=== PATIENT | male | born 1980 | race Caucasian/White ===

== ENCOUNTER 2016-12-15 12:53 | Emergency (ER) | payer SELFPAY ==
[2016-12-15 13:02] VITALS: BP 102/63; PULSE 55; RESP 16; TEMP 98.2; O2SAT 95
--- NOTE | 2016-12-15 13:51 | UCPHY ---
H & P Time Seen by Provider: 12/15/16 12:58 Patient Type: New HPI/ROS: CHIEF COMPLAINT: Cough, sore throat HPI: The patient is a 36-year-old male with no significant past medical history. He complains of sore throat, malaise and cough that has been present for approximately 1 week. The patient was seen a few days ago in urgent care with a negative rapid strep. He describes 1 episode of blood-tinged sputum. Initially his symptoms were primarily sore throat but have now progressed to cough. He complains of overall malaise and fatigue. REVIEW OF SYSTEMS: Aside from elements discussed in the HPI, a comprehensive 10-point review of systems was reviewed and is negative. PMH: None significant. SOCIAL HISTORY: Works as a signs teacher. Denies alcohol or drug abuse. FAMILY HISTORY: Reviewed, noncontributory PHYSICAL EXAM: General:Patient is alert, in no acute distress. ENT:Eyes are normal to inspection. ENT inspection normal. No exudate or erythema. Neck: Normal inspection. Full range of motion. Respiratory:No respiratory distress. Breath sounds normal bilaterally. Cardiovascular: Regular rate and rhythm. Strong peripheral pulses. Normal cap refill. Abdomen:The abdomen is nontender to palpation. There are no peritoneal signs. There are normal bowel sounds. Back: Normal to inspection. No tenderness to palpation. Skin: Normal color. No rash. Warm and dry. Extremities: Normal appearance. Full range of motion. Neuro: Oriented x3. Normal motor function. Normal sensory function. Smoking Status: Never smoked Constitutional: Initial Vital Signs Temperature (C) 36.8 C 12/15/16 12:59 Heart Rate 55 L 12/15/16 12:59 Respiratory Rate 16 12/15/16 12:59 Blood Pressure 102/63 12/15/16 12:59 O2 Sat (%) 95 12/15/16 12:59 O2 Delivery Mode Room Air Allergies/Adverse Reactions: No Known Allergies Allergy (Unverified 12/15/16 12:59) Home Medications: Medication Instructions Recorded AZITHROMYCIN [Z-PACK] 250 mg PO DAILY 5 Days 12/15/16 Benzonatate [Tessalon Pearles (RX)] 200 mg PO TID PRN #15 cap 12/15/16 HYDROcodone/HOMATROPINE HYCODA 1 tsp PO Q4-6PRN PRN #120 ml 12/15/16 [Hycodan Syrup (RX)] MDM/Departure - [facility] ED Course/Re-evaluation: This is a young healthy male who presents with signs and symptoms of acute bronchitis. There is no pneumonia seen on x-ray. His influenza test is negative. There are no signs of sepsis or hypoxia. I do not think that antibiotics or oral steroids are indicated. I will send the patient home with a prescription for 2 cough suppressants. He understands return precautions including worsening fever or shortness of breath. I see no evidence of pulmonary embolus. The patient has no risk factors for this disease, is not tachycardic nor hypoxic. - Depart Disposition: Home, Routine, Self-Care Clinical Impression: Bronchitis Condition: Good Instructions: Acute Bronchitis (ED) Additional Instructions: Use ibuprofen and Tylenol as needed for fever and body aches. Follow up with your primary care physician within 72 hours for reevaluation. Drink plenty of fluids. Return to the emergency department immediately for high fever, severe headache or neck pain, difficulty breathing, chest pain, abdominal pain, rash or other worsening of condition. Prescriptions: AZITHROMYCIN [Z-PACK] 250 mg PO DAILY 5 Days Benzonatate [Tessalon Pearles (RX)] 200 mg PO TID PRN #15 cap PRN Reason: Cough, Severe HYDROcodone/HOMATROPINE HYCODA [Hycodan Syrup (RX)] 1 tsp PO Q4-6PRN PRN #120 ml PRN Reason: Cough, Severe Referrals: NONE *PRIMARY CARE P,. [Primary Care Provider] - As per Instructions - PQRS PQRS Measurement: 134: Depression screening and followup, PRIME MD-PHQ2 (12 years and older) Over the last 2 weeks, how often have you been bothered by any of the following problems? 1. Feeling down, depressed, or hopeless? 2. Little interest or pleasure in doing things? Patient answered no to both 1 and 2 130: Documentation of medications. Reviewed all patient medications, doses, route and frequency. 226: Do you smoke? No. 51: 18 years old and older with diagnosis of COPD, spirometry performance. Spirometry not performed; equipment not available. Patient has no history of COPD 52: 18 years old and older with COPD and symptoms of COPD or FEV1<60% predicted prescribed a B Agonist. Spirometry not performed; equipment not available.
== END 2016-12-15 14:41 | disposition home or self-care (01) ==
LOC: CED 12:53
DX: J20.9 Acute bronchitis, unspecified (principal)
CPT/HCPCS: 71020-PO; 87400-PO; G0463-PO